=== PATIENT | male | born 1985 | race Caucasian/White ===

== ENCOUNTER 2022-06-03 12:23 | Emergency (ER) | payer OTHER, SELFPAY ==
[2022-06-03] VITALS (7 sets, daily range): BP systolic 106–145; BP diastolic 66–79; PULSE 54–69; RESP 8–22; O2SAT 96–100; BMI 34.7
--- NOTE | 2022-06-03 12:47 | ECG_ITS ---
[facility] Test Date: 2022-06-03 Pat Name: Tee Morrow Department: Room: Gender: Male It Security Consultant: : 1985 Requested By: Yang Coombs Order Number: [id number] Tonya MD: Renata Buck M.D. Measurements Intervals [place] Rate: 57 P: 39 UT: 176 QRS: 1 QRSD: 97 T: 23 QT: 425 QTc: 416 Interpretive Statements SINUS BRADYCARDIA No previous ECG available for comparison Electronically Signed On 06-04-2022 6:05:04 CDT by Renata Buck M.D. [email or web address]
--- NOTE | 2022-06-03 13:29 | XR_ITS ---
WS: [id number] Exam: XR chest 1V portable [id number] Date/Time of Exam: 06/03/2022 1:31 PM Reason For Exam: dyspnea/cough No priors. Findings: The lungs are clear and fully expanded. Costophrenic angles are sharp. No infiltrates. Bronchovascula r relief appears normal. Cardiac silhouette is unremarkable. Bony elements are intact. XR/XR chest 1V portable [id number] IMPRESSION: Unremarkable chest radiograph.
--- NOTE | 2022-06-03 13:51 | W.ED.CHESTPA ---
HPI - Chest Pain General: Chief Complaint: Chest Pain Stated Complaint: CHEST PAIN Time Seen by Provider: 06/03/22 12:24 Source: patient Mode of arrival: EMS History of Present Illness: 36-year-old male presents to the emergency room he was driving down the road he began to get lightheaded and dizzy felt tingling in his arms and legs bilaterally he stopped several times to get out and walk around he was breathing heavily and rapidly. Instead of improving it progressively worsened to the point that he felt like he was going to pass out and ultimately called his boss and told him he was having difficulty his boss advised him to call 911 he was brought in by ambulance. He has no history of any cardiac disease. He has no history of any arrhythmias. MD complaint: chest pain Onset (ago): minute(s) Timing of current episode: episodic Prior episodes: No Onset: during rest Pain location: left chest Pain radiation: right arm and left arm Severity: moderate Quality: tightness Relieving factors: nothing Exacerbating factors: nothing Associated symptoms: Deny abdominal pain, diaphoresis, dyspnea, fever(s), leg edema, nausea, palpitations, sense of impending doom, syncope or vomiting Treatment prior to arrival: aspirin and nitroglycerin Review of Systems Const: Denies: fever(s), chills, fatigue, malaise or diaphoresis ENMT: Denies: throat pain, ear or mastoid pain, nasal discharge or nasal congestion Card: Denies: palpitations or syncope Resp: Denies: dyspnea GI: Denies: abdominal pain, nausea or vomiting : Denies: flank pain, difficulty urinating, dysuria, urinary frequency or urinary urgency Musc: Denies: neck pain or back pain Skin/Breast: Denies: rash or pruritus Physical Exam Const: GENERAL APPEARANCE: cooperative and comfortable ORIENTATION/CONSCIOUSNESS: Yes awake, Yes oriented to person, Yes oriented to place and Yes oriented to time HENMT: COMMON NORMALS: normocephalic, atraumatic and hearing grossly normal bilaterally HEAD & SCALP: normocephalic and atraumatic Resp: COMMON NORMALS: normal respiratory effort, No retractions, No use of accessory muscles and clear to auscultation bilaterally AUSCULTATION: clear to auscultation bilaterally Cardio: COMMON NORMALS: regular rate, regular rhythm and No murmurs present (Cardio) RATE: regular rate RHYTHM: regular rhythm GI: COMMON NORMALS: Soft to palpation and No hepatosplenomegaly present AUSCULTATION: Yes normoactive bowel sounds PALPATION: Yes Soft to palpation, No Tenderness to palpation present (GI), No Guarding due to palpation present (GI) and Yes No hepatosplenomegaly present Extremity: COMMON NORMALS: normal to inspection, capillary refill normal, no clubbing, cyanosis or edema, no calf tenderness and no pedal edema Neuro: SENSORIUM/ORIENTATION: Yes oriented to person, Yes oriented to place and Yes oriented to time Skin: COMMON NORMALS: no rashes or lesions noted GENERAL SKIN EXAM: no rashes or lesions noted Course Vital Signs: Vital signs: Vital Signs Pulse Rate 57 L 06/03/22 15:30 Respiratory Rate 8 L 06/03/22 15:30 Blood Pressure 128/69 06/03/22 15:30 Pulse Oximetry 100 06/03/22 15:30 Oxygen Delivery Me thod 06/03/22 15:30 MDM - Chest Pain Medical Decision Making Symptoms resolved. He has not no further issues. Serial enzymes and EKGs are unremarkable on talk to the patient sounds like he had a anxiety attack with hyperventilation. Offered the patient follow-up however he does not live in this area he will seek out follow-up through his primary care provider. We will discharge patient home return if he has further symptoms. Medical Records I reviewed the patient's medical records. Lab Data I reviewed the patient's lab results. : 06/03/22 13:52 06/03/22 12:35 Radiology Impressions Chest X-Ray 06/03/22 13:29 IMPRESSION: Unremarkable chest radiograph. Laboratory Results WBC 9.7 10^3/uL (4.0-10.0) 06/03/22 13:52 Corrected WBC Cancelled 06/03/22 12:35 RBC 5.12 10^6/uL (4.1-5.3) 06/03/22 13:52 Hgb 15.1 g/dL (11.7-16.6) 06/03/22 13:52 Hct 45.2 % (42.0-52.0) 06/03/22 13:52 MCV 88.3 fl (80-94) 06/03/22 13:52 MCH 29.5 pg (28.0-34.0) 06/03/22 13:52 MCHC 33.4 g/dL (30.0-36.0) 06/03/22 13:52 RDW 12.4 % (12.1-15.1) 06/03/22 13:52 Plt Count 193 10^3/cmm (130-400) 06/03/22 13:52 MPV 9.9 fL (7.4-10.4) 06/03/22 13:52 Gran % Cancelled 06/03/22 12:35 Neut % (Auto) 81.9 % 06/03/22 13:52 Lymph % (Auto) 12.5 % 06/03/22 13:52 [place] % (Auto) 4.5 % 06/03/22 13:52 Eos % (Auto) 0.2 % 06/03/22 13:52 Baso % (Auto) 0.3 % 06/03/22 13:52 Neut # (Auto) 7.93 10^3/uL (1.8-7.7) H 06/03/22 13:52 Lymph # (Auto) 1.2 10^3/uL (0.8-4.8) 06/03/22 13:52 [place] # (Auto) 0.4 10^3/uL (0.2-0.9) 06/03/22 13:52 Eos # (Auto) 0.0 10^3/uL (0.0-0.8) 06/03/22 13:52 Baso # (Auto) 0.0 10^3/uL (0.0-0.1) 06/03/22 13:52 Absolute Gran (auto) Cancelled 06/03/22 12:35 Nucleated RBC % (auto) 0 % 06/03/22 13:52 Nucleated RBCs # 0.0 /100WBC 06/03/22 13:52 Sodium 138 mmol/L (136-145) 06/03/22 12:35 Potassium 3.8 mmol/L (3.5-5.1) 06/03/22 12:35 Chloride 104 mmol/L (98-107) 06/03/22 12:35 Carbon Dioxide 23 mmol/L (22-29) 06/03/22 12:35 Anion Gap 14.8 (5-19) 06/03/22 12:35 BUN 14 mg/dL (6-20) 06/03/22 12:35 Creatinine 1.0 mg/dL (0.7-1.2) 06/03/22 12:35 GFR Calculation 84.1 mL/min (90-130) L 06/03/22 12:35 Glucose 110 mg/dL (65-115) 06/03/22 12:35 Calculated Osmolality 287 mOsm/kg (285-295) 06/03/22 12:35 Calcium 9.5 mg/dL (8.5-10.5) 06/03/22 12:35 Total Bilirubin 1.3 mg/dL (0.15-1.2) H 06/03/22 12:35 AST 28 U/L (0-40) 06/03/22 12:35 ALT 48 U/L (0-41) H 06/03/22 12:35 Alkaline Phosphatase 54 U/L (40-130) 06/03/22 12:35 Troponin T Baseline 6 ng/L (0-15) 06/03/22 12:35 Troponin T 120 Minute 6.00 ng/L (0-15) 06/03/22 14:22 Delta Troponin T 0 ABS# (0-10) 06/03/22 14:22 Total Protein 7.1 g/dL (6.6-8.7) 06/03/22 12:35 Albumin 4.3 g/dL (3.5-5.2) 06/03/22 12:35 Globulin 2.8 g/dL (1.3-4.6) 06/03/22 12:35 Discharge Plan Discharge Patient Disposition: Home Clinical Impression: Hyperventilation Condition: Stable Prescriptions: No Action Zyrtec 10 mg Tablet 10 mg PO DAILY PRN (Reason: Allergy Symptoms) Advil 200 mg Tablet 200 mg PO Q6H PRN (Reason: Pain) Tylenol 325 mg Capsule 325 mg PO QID PRN (Reason: Pain) Discharge Orders: Discharge ED (Routine); Ordered 06/03/22 Ordered By: Yang Hui Discharge Diet: Usual diet Discharge Activity: Increase activity as tolerated Patient Instructions: Opioid Safety, Pain Management Activity Restrictions/Additional Instructions: Follow-up with your primary care doctor for further potential evaluation of this episode today. Coding Level of Care Code ED Marine Insulator for Mohinder Rodarte
[2022-06-03 13:55] LABS: Alanine Aminotransferase 48 U/L (0-41); Albumin Level 4.3 g/dL (3.5-5.2); Alkaline Phosphatase 54 U/L (40-130); Blood Urea Nitrogen 14 mg/dL (6-20); Calcium 9.5 mg/dL (8.5-10.5); Carbon Dioxide 23 mmol/L (22-29); Globulin 2.8 g/dL (1.3-4.6); Glomerular Filtration Rate 84.1 mL/min (90-130); Glucose 110 mg/dL (65-115); Total Bilirubin 1.3 mg/dL (0.15-1.2); Total Protein 7.1 g/dL (6.6-8.7)
[2022-06-03 13:56] LABS: Basophils % 0.3 %; Eosinophils % 0.2 %; Hematocrit 45.2 % (42.0-52.0); Hemoglobin 15.1 g/dL (11.7-16.6); Lymphocytes # 1.2 10^3/uL (0.8-4.8); Lymphocytes % 12.5 %; Mean Corpuscular HGB Conc 33.4 g/dL (30.0-36.0); Mean Corpuscular Hemoglobin 29.5 pg (28.0-34.0); Mean Corpuscular Volume 88.3 fl (80-94); Mean Platelet Volume 9.9 fL (7.4-10.4); Monocytes # 0.4 10^3/uL (0.2-0.9); Monocytes % 4.5 %; Neutrophils # 7.93 10^3/uL (1.8-7.7); Neutrophils % 81.9 %; Nucleated Red Blood Cells % 0 %; Platelet Count 193 10^3/cmm (130-400); Red Blood Count 5.12 10^6/uL (4.1-5.3); Red Cell Distribution Width 12.4 % (12.1-15.1); White Blood Count 9.7 10^3/uL (4.0-10.0)
[2022-06-03 14:14] LABS: Troponin(5th) Baseline 6 ng/L (0-15)
[2022-06-03 14:37] LABS: Chloride 104 mmol/L (98-107); Osmolality Calculated 287 mOsm/kg (285-295); Sodium 138 mmol/L (136-145)
[2022-06-03 14:39] LABS: Anion Gap 14.8 (5-19); Aspartate Amino Transferase 28 U/L (0-40); Potassium 3.8 mmol/L (3.5-5.1)
[2022-06-03 14:59] LABS: Troponin 5 2HR Delta 0 ABS# (0-10)
== END 2022-06-03 15:45 | disposition home or self-care (01) ==
PROVIDERS: Emergency Provider Family Medicine
DX: R06.4 Hyperventilation (principal)
CPT/HCPCS: 36415; 71045; 80053; 84484; 85025; 93005; 99285